=== PATIENT | female | born 1930 | race Caucasian/White ===

== ENCOUNTER 2017-09-20 18:37 | Inpatient (IN) | payer MEDICARE, OTHER ==
[~2017-09-20] VITALS: Ht 160 cm; Wt 65.0 kg
[2017-09-20] VITALS (11 sets, daily range): BP systolic 144–178; BP diastolic 63–84; PULSE 65–83; RESP 14–20; TEMP 97.5; O2SAT 92–100
[~2017-09-20 18:37] MED LIST: LORTA5 PO; [UNRECOGNIZED DRUG - REMARK] PO
[2017-09-20] MEDS ORDERED: ONDANSETRON HCL 4 MG/2 ML VIAL IVP ONE (19:00)
[2017-09-20] MEDS ORDERED: AMLO2.5T PO (19:00)
[2017-09-20] MEDS ORDERED: ASPI81CH CHEW (19:00)
[2017-09-20] MEDS ORDERED: MORPHINE SULFATE 4 MG/ML INJ IV PUSH ONE (19:00)
[2017-09-20] MEDS ORDERED: ceFAZolin 2 GM PREMIX 50 ML IV ONE (19:00)
[2017-09-20] MEDS ORDERED: TETANUS/DIPHTHERIA TOXOID ADULT 0.5 ML VIAL IM ONE (19:00)
[2017-09-20] MEDS ORDERED: SODIUM CHLORIDE 0.9% FLUSH 10 ML FLUSH IV FLUSH PRN ×3 (19:00→23:30)
--- NOTE | 2017-09-20 19:06 | PD ---
HPI Chief Complaint: Fall Time Seen by Provider: 18:48 Travel History International Travel<30 days: No Contact w/Intl Traveler<30days: No Traveled to known affect area: No History of Present Illness HPI 87-year-old female here with her daughter for evaluation of right wrist pain after a trip and fall that occurred about an hour prior to arrival. The patient reports tripping and falling forward onto an outstretched right arm. She has significant pain in her right wrist and there apparently was bleeding from the wrist as well. She denies any other injuries. No head injury or LOC. No head neck or back pain. No pain in any other joint or extremity. Right wrist pain is moderate to severe, constant, worse with movements and palpation. No paresthesias. She is right-handed. PFSH Past Medical History Cardiovascular Problems: Yes (HTN ) Cerebrovascular Accident: Yes Diminished Hearing: Yes ([place]) Hypertension: Yes Past Surgical History Gynecologic Surgery: Yes (L LUMPECTOMY, HYSTERECTOMY ) Hysterectomy: Yes Other Surgery: Yes (BIOPSY LEFT BREAST) Social History Alcohol Use: Yes (OCC) Tobacco Use: No Substance Use: No Allergies-Medications (Allergen,Severity, Reaction): Coded Allergies: No Known Allergies (Unverified , 05/06/16) Reported Meds & Prescriptions Reported Meds & Active Scripts Active Reported Amlodipine (Amlodipine Besylate) 2.5 Mg Tab 2.5 Mg PO DAILY Aspirin 81 Mg Chew 81 Mg CHEW DAILY Review of Systems Except as stated in HPI: all other systems reviewed are Neg Physical Exam Narrative GENERAL: Pleasant, well-developed, well-nourished, awake, alert, no apparent distress. SKIN: Right medial/distal wrist with a approximately 1.5 cm laceration with moderate amount of venous oozing with small fat cells noted. HEAD: Atraumatic. Normocephalic. EYES: Pupils equal and round. No scleral icterus. No injection or drainage. ENT: Mucous membranes pink and moist. NECK: Trachea midline. No JVD. No midline cervical spine step-off or tenderness. CARDIOVASCULAR: Regular rate and rhythm. Bilateral distal radial pulses are brisk and equal. Normal capillary refill in right hand. RESPIRATORY: No accessory muscle use. Clear to auscultation. Breath sounds equal bilaterally. GASTROINTESTINAL: Abdomen soft, non-tender, nondistended. MUSCULOSKELETAL: Obvious deformity to right wrist with skin exam as above with limited range of motion in the wrist. The rest of the patient's joints and extremities are without deformity, without tenderness, with normal range of motion. NEUROLOGICAL: Awake and alert. No obvious cranial nerve deficits. Motor grossly within normal limits. Normal speech. Normal sensation in the right hand. PSYCHIATRIC: Appropriate mood and affect; insight and judgment normal. Data Data Last Documented VS Vital Signs Date Time Temp Pulse Resp B/P (MAP) Pulse Ox O2 Delivery O2 Flow Rate FiO2 09/20/17 20:38 82 17 154/69 (97) 97 Nasal Cannula 2.00 09/20/17 18:56 97.5 Orders Orders Wrist, Complete ([id number]) (09/20/17 ) Basic Metabolic Panel (Bmp) (09/20/17 18:59) Complete Blood Count With Diff (09/20/17 18:59) Prothrombin Time / Inr (Pt) (09/20/17 18:59) Act Partial Throm Time (Ptt) (09/20/17 18:59) Iv Access Insert/Monitor (09/20/17 18:59) Ecg Monitoring (09/20/17 18:59) Oximetry (09/20/17 18:59) Morphine Inj (Morphine Inj) (09/20/17 19:00) Ondansetron Inj (Zofran Inj) (09/20/17 19:00) Sodium Chloride 0.9% Flush (Ns Flush) (09/20/17 19:00) Type And Screen (09/20/17 18:59) Tetanus/Diphtheria Tox Adult (Tetanus/Di (09/20/17 19:00) Cefazolin 2 Gm Premix (Ancef 2 Gm Premix (09/20/17 19:00) Chest, Single Ap (09/20/17 ) Propofol 200 Mg/20 Ml Inj (Diprivan 200 (09/20/17 19:45) Wrist, Complete ([id number]) (09/20/17 ) NPO (09/20/17 20:09) Consult Orthopedic (09/20/17 ) Labs Laboratory Tests Test 09/20/17 19:15 White Blood Count 9.1 TH/MM3 Red Blood Count 4.20 MIL/MM3 Hemoglobin 13.2 GM/DL Hematocrit 39.2 % Mean Corpuscular Volume 93.5 FL Mean Corpuscular Hemoglobin 31.5 PG Mean Corpuscular Hemoglobin Concent 33.7 % Red Cell Distribution Width 13.3 % Platelet Count 221 TH/MM3 Mean Platelet Volume 9.0 FL Neutrophils (%) (Auto) 45.5 % Lymphocytes (%) (Auto) 43.4 % Monocytes (%) (Auto) 8.0 % Eosinophils (%) (Auto) 2.2 % Basophils (%) (Auto) 0.9 % Neutrophils # (Auto) 4.2 TH/MM3 Lymphocytes # (Auto) 4.0 TH/MM3 Monocytes # (Auto) 0.7 TH/MM3 Eosinophils # (Auto) 0.2 TH/MM3 Basophils # (Auto) 0.1 TH/MM3 CBC Comment DIFF FINAL Differential Comment Prothrombin Time 11.5 SEC Prothromb Time International Ratio 1.0 RATIO Activated Partial Thromboplast Time 24.0 SEC Blood Urea Nitrogen 21 MG/DL Creatinine 0.81 MG/DL Random Glucose 116 MG/DL Calcium Level 9.1 MG/DL Sodium Level 137 MEQ/L Potassium Level 3.7 MEQ/L Chloride Level 104 MEQ/L Carbon Dioxide Level 25.1 MEQ/L Anion Gap 8 MEQ/L Estimat Glomerular Filtration Rate 67 ML/MIN MDM Medical Decision Making Medical Screen Exam Complete: Yes Emergency Medical Condition: Yes Differential Diagnosis Open wrist fracture, fracture dislocation Narrative Course The patient has an obvious deformity to her right wrist with a 1.5 cm laceration to the distal wrist over the distal ulna with a moderate amount of venous oozing with fat cells noted. This is likely an open fracture. Wound was irrigated with copious amounts of normal saline and a sterile/nonadherent dressing was applied. The right hand is neurovascularly intact. The patient was provided tetanus and Ancef as well as pain medication. X-rays ordered. Right wrist x-ray shows a comminuted/dorsally/radially displaced distal radius fracture as well as ulnar styloid process fracture. Case discussed with operating room nurse who relayed the message to on-call orthopedic surgeon Dr. Lantigua who is currently in surgery. He recommends that I try to reduce the fracture and place the patient's wrist in a splint. He would like the patient to be admitted medically with a routine orthopedic consults. Plans for ORIF either later tonight or tomorrow morning. Procedural sedation performed by Dr. Greene. See her note. Close reduction performed by me. See procedure note. Case discussed with Dr Ferguson who will admit the patient to her service. Procedures Procedure Narrative Close reduction of right wrist fracture: Informed consent obtained. Procedural sedation performed by Dr. Greene. Once adequate sedation was achieved, reduction was performed by pulling traction on the patient's thumb index and middle finger. Nonadherent dressing applied to laceration on the distal/medial wrist prior to splint application. Tolerated well. No complications. Postreduction x-rays ordered. Right hand neurovascularly intact after procedure. She was complaining of some tingling in her right pinky finger prior to and after the procedure, however sensation remains intact. Diagnosis Primary Impression: Open fracture of right wrist Qualified Codes: S62.101B - Fracture of unspecified carpal bone, right wrist, initial encounter for open fracture Additional Impression: Fall Qualified Codes: W19.XXXA - Unspecified fall, initial encounter Admitting Information Admitting Physician Requests: it Jace Pascual MD Sep 20, 2017 19:05
--- NOTE | 2017-09-20 19:35 | RADRPT ---
EXAM DATE/TIME: 09/20/2017 20:00 [facility] COMPARISON: No previous studies available for comparison. INDICATIONS : Evaluate for pneumothorax, pneumonia, or communicable diseases. MEDICAL HISTORY : None. SURGICAL HISTORY : None. ENCOUNTER: Initial ACUITY: 1 day PAIN SCORE: 0/10 LOCATION: chest FINDINGS: Bony structures appear osteopenic provide H. and intact with normal size heart and atherosclerotic ch anges in the aorta. There are remote healed right rib fractures. Vascularity is normal. No consolidat rebecca infiltrates are appreciated. CONCLUSION: No acute disease. Naresh Mendez MD on September 20, 2017 at 19:33 Board Certified Radiologist. This report was verified electronically.
[2017-09-20 19:36] LABS: AUTOMATED NEUTROPHIL # 4.2 TH/MM3 (1.8-7.7); BASOPHIL # 0.1 TH/MM3 (0-0.2); BASOPHIL % 0.9 % (0.0-2.0); EOSINOPHIL # 0.2 TH/MM3 (0-0.4); EOSINOPHIL % 2.2 % (0.0-4.0); HEMATOCRIT 39.2 % (35.0-46.0); HEMO FLAGS DIFF FINAL; LYMPH % 43.4 % (9.0-44.0); MEAN CELL VOLUME 93.5 FL (80.0-100.0); MEAN CORPUSCULAR HEMOGLOBIN 31.5 PG (27.0-34.0); MEAN CORPUSCULAR HGB CONC 33.7 % (32.0-36.0); NEUT % 45.5 % (16.0-70.0); PLATELET COUNT 221 TH/MM3 (150-450); RED CELL DISTRIBUTION WIDTH 13.3 % (11.6-17.2); WHITE BLOOD COUNT 9.1 TH/MM3 (4.0-11.0)
--- NOTE | 2017-09-20 19:36 | RADRPT ---
EXAM DATE/TIME: 09/20/2017 19:56 [facility] COMPARISON: No previous studies available for comparison. INDICATIONS : Patient complains of right wrist pain after falling today. MEDICAL HISTORY : None. SURGICAL HISTORY : None. ENCOUNTER: Initial ACUITY: 1 day PAIN SCORE: 10/10 LOCATION: Right Wrist FINDINGS: There is a comminuted distal radial fracture with the major distal fragments exter gali displaced upon the major proximal fragment and overriding. Carpal bones move with the distal fr agments. There is additionally a fracture of the ulnar styloid and this may be open and extending tow [place] the skin. CONCLUSION: Comminuted fracture distal radius major distal fragments are slowly and medially exte rnally displaced upon the proximal fragment and overriding by probably 2 cm. Fracture is probably ope n with a small area of bone absent from the ulnar styloid Naresh Mendez MD on September 20, 2017 at 19:34 Board Certified Radiologist. This report was verified electronically.
[2017-09-20] MEDS ORDERED: PROPOFOL 200 MG/20 ML AMP IV ONE (19:45)
[2017-09-20 19:49] LABS: PROTHROMBIN TIME - PATIENT 11.5 SEC (9.8-11.6)
[2017-09-20 20:04] LABS: BICARBONATE 25.1 MEQ/L (21.0-32.0); POTASSIUM 3.7 MEQ/L (3.5-5.1)
--- NOTE | 2017-09-20 20:12 | PD ---
Physical Exam Narrative I was asked by Dr. Pascual to perform conscious sedation for fracture reduction. Patient tripped and fell, injuring her wrist. She is awake and alert, airway is patent. Data Data Last Documented VS Vital Signs Date Time Temp Pulse Resp B/P (MAP) Pulse Ox O2 Delivery O2 Flow Rate FiO2 09/20/17 19:32 92 Nasal Cannula 2.00 09/20/17 18:56 68 09/20/17 18:56 97.5 18 Orders Orders Wrist, Complete ([id number]) (09/20/17 ) Basic Metabolic Panel (Bmp) (09/20/17 18:59) Complete Blood Count With Diff (09/20/17 18:59) Prothrombin Time / Inr (Pt) (09/20/17 18:59) Act Partial Throm Time (Ptt) (09/20/17 18:59) Iv Access Insert/Monitor (09/20/17 18:59) Ecg Monitoring (09/20/17 18:59) Oximetry (09/20/17 18:59) Morphine Inj (Morphine Inj) (09/20/17 19:00) Ondansetron Inj (Zofran Inj) (09/20/17 19:00) Sodium Chloride 0.9% Flush (Ns Flush) (09/20/17 19:00) Type And Screen (09/20/17 18:59) Tetanus/Diphtheria Tox Adult (Tetanus/Di (09/20/17 19:00) Cefazolin 2 Gm Premix (Ancef 2 Gm Premix (09/20/17 19:00) Chest, Single Ap (09/20/17 ) Propofol 200 Mg/20 Ml Inj (Diprivan 200 (09/20/17 19:45) Wrist, Complete ([id number]) (09/20/17 ) NPO (09/20/17 20:09) Labs Laboratory Tests Test 09/20/17 19:15 White Blood Count 9.1 TH/MM3 Red Blood Count 4.20 MIL/MM3 Hemoglobin 13.2 GM/DL Hematocrit 39.2 % Mean Corpuscular Volume 93.5 FL Mean Corpuscular Hemoglobin 31.5 PG Mean Corpuscular Hemoglobin Concent 33.7 % Red Cell Distribution Width 13.3 % Platelet Count 221 TH/MM3 Mean Platelet Volume 9.0 FL Neutrophils (%) (Auto) 45.5 % Lymphocytes (%) (Auto) 43.4 % Monocytes (%) (Auto) 8.0 % Eosinophils (%) (Auto) 2.2 % Basophils (%) (Auto) 0.9 % Neutrophils # (Auto) 4.2 TH/MM3 Lymphocytes # (Auto) 4.0 TH/MM3 Monocytes # (Auto) 0.7 TH/MM3 Eosinophils # (Auto) 0.2 TH/MM3 Basophils # (Auto) 0.1 TH/MM3 CBC Comment DIFF FINAL Differential Comment Prothrombin Time 11.5 SEC Prothromb Time International Ratio 1.0 RATIO Activated Partial Thromboplast Time 24.0 SEC Blood Urea Nitrogen 21 MG/DL Creatinine 0.81 MG/DL Random Glucose 116 MG/DL Calcium Level 9.1 MG/DL Sodium Level 137 MEQ/L Potassium Level 3.7 MEQ/L Chloride Level 104 MEQ/L Carbon Dioxide Level 25.1 MEQ/L Anion Gap 8 MEQ/L Estimat Glomerular Filtration Rate 67 ML/MIN MDM Supervised Visit with DUC: No Narrative Course Procedural sedation performed using Propofol after consent obtained. Sedation occurred without incident. Patient awoke from sedation, breathing normally, resting comfortably. Procedures Procedure Narrative After the risks and benefits were discussed the following procedure was performed: MODERATE SEDATION: The patient was placed on a detective sergeant and pulse oximetry. An ambu bag and suction was immediately available at bedside. The patient was monitored by the nurse. Oxygen saturation , heart rate and blood pressure were monitored. Procedural sedation was acheived using propofol. The patient was observed until awake and alert. Procedural Sedation time in attendance was 15 minutes. Diagnosis Primary Impression: Open fracture of right wrist Qualified Codes: S62.101B - Fracture of unspecified carpal bone, right wrist, initial encounter for open fracture Additional Impression: Fall Qualified Codes: W19.XXXA - Unspecified fall, initial encounter Shraddha Greene MD Sep 20, 2017 20:12
--- NOTE | 2017-09-20 20:29 | RADRPT ---
EXAM DATE/TIME: 09/20/2017 21:04 [facility] COMPARISON: WRIST RIGHT COMPLETE ([id number]), September 20, 2017, 19:56. INDICATIONS : Post reduction. MEDICAL HISTORY : None. SURGICAL HISTORY : None. ENCOUNTER: Initial ACUITY: 1 day PAIN SCORE: 3/10 LOCATION: Right wrist FINDINGS: D. dislocation of the distal radial fracture fragments is reduced in improved alignment distal fragme nt still 1 cm externally displaced on the major proximal fragment with the overriding component dimin ished. There is an external cast in place CONCLUSION: Reduction distal radial fracture into improved alignment and approximation of fragments with diminish ed overriding and displacement Naresh Mendez MD on September 20, 2017 at 20:26 Board Certified Radiologist. This report was verified electronically.
--- NOTE | 2017-09-20 20:56 | HHI.HP ---
[facility] Service [facility] Primary Care Physician No Primary Care Physician Admission Diagnosis Open right wrist fracture, trip and fall Diagnoses: Travel History International Travel<30 Days: No Contact w/Intl Traveler <30 Da: No Traveled to Known Affected Are: No Past Family Social History Allergies: Coded Allergies: No Known Allergies (Unverified , 05/06/16) Physical Exam Vital Signs Vital Signs Date Time Temp Pulse Resp B/P (MAP) Pulse Ox O2 Delivery O2 Flow Rate FiO2 09/20/17 20:41 74 16 154/69 (97) 95 Nasal Cannula 2.00 09/20/17 20:38 82 17 154/69 (97) 97 Nasal Cannula 2.00 09/20/17 20:24 77 14 146/63 (90) 92 Nasal Cannula 2.00 09/20/17 20:08 77 16 169/74 (105) 92 Nasal Cannula 09/20/17 20:03 74 16 144/73 (96) 92 Nasal Cannula 2.00 09/20/17 19:58 81 18 157/71 (99) 100 Nasal Cannula 2.00 09/20/17 19:54 80 18 149/72 (97) 99 Nasal Cannula 2.00 09/20/17 19:32 92 Nasal Cannula 2.00 09/20/17 18:56 68 09/20/17 18:56 97.5 65 18 149/79 (102) 96 Room Air 09/20/17 18:45 78 18 149/79 (102) 97 Physical Exam GENERAL: This is a well-nourished, well-developed patient, in no apparent distress. SKIN: No rashes, ecchymoses or lesions. Cool and dry. HEAD: Atraumatic. Normocephalic. No temporal or scalp tenderness. EYES: Pupils equal round and reactive. Extraocular motions intact. No scleral icterus. No injection or drainage. ENT: Nose without bleeding, purulent drainage or septal hematoma. Throat without erythema, tonsillar hypertrophy or exudate. Uvula midline. Airway patent. NECK: Trachea midline. No JVD or lymphadenopathy. Supple, nontender, no meningeal signs. CARDIOVASCULAR: Regular rate and rhythm without murmurs, gallops, or rubs. RESPIRATORY: Clear to auscultation. Breath sounds equal bilaterally. No wheezes , rales, or rhonchi. GASTROINTESTINAL: Abdomen soft, non-tender, nondistended. No hepato-splenomegaly , or palpable masses. No guarding. MUSCULOSKELETAL: Extremities without clubbing, cyanosis, or edema. No joint tenderness, effusion, or edema noted. No calf tenderness. Negative Homans sign bilaterally. NEUROLOGICAL: Awake and alert. Cranial nerves II through XII intact. Motor and sensory grossly within normal limits. Five out of 5 muscle strength in all muscle groups. Normal speech. Laboratory Laboratory Tests Test 09/20/17 19:15 White Blood Count 9.1 Red Blood Count 4.20 Hemoglobin 13.2 Hematocrit 39.2 Mean Corpuscular Volume 93.5 Mean Corpuscular Hemoglobin 31.5 Mean Corpuscular Hemoglobin Concent 33.7 Red Cell Distribution Width 13.3 Platelet Count 221 Mean Platelet Volume 9.0 Neutrophils (%) (Auto) 45.5 Lymphocytes (%) (Auto) 43.4 Monocytes (%) (Auto) 8.0 Eosinophils (%) (Auto) 2.2 Basophils (%) (Auto) 0.9 Neutrophils # (Auto) 4.2 Lymphocytes # (Auto) 4.0 Monocytes # (Auto) 0.7 Eosinophils # (Auto) 0.2 Basophils # (Auto) 0.1 CBC Comment DIFF FINAL Differential Comment Prothrombin Time 11.5 Prothromb Time International Ratio 1.0 Activated Partial Thromboplast Time 24.0 Blood Urea Nitrogen 21 Creatinine 0.81 Random Glucose 116 Calcium Level 9.1 Sodium Level 137 Potassium Level 3.7 Chloride Level 104 Carbon Dioxide Level 25.1 Anion Gap 8 Estimat Glomerular Filtration Rate 67 Result Diagram: 09/20/17191409/20/171914 Caprini VTE Risk Assessment Caprini VTE Risk Assessment: Mod/High Risk (score >= 2) Caprini Risk Assessment Model Point Value = 1 Point Value = 2 Point Value = 3 Point Value = 5 Age 41-60 Minor surgery BMI > 25 kg/m2 Swollen legs Varicose veins or History of unexplained or recurrent spontaneous Oral contraceptives or hormone replacement Sepsis (< 1 month) Serious lung disease, including pneumonia (< 1 month) Abnormal pulmonary function Acute myocardial infarction Congestive heart failure (< 1 month) History of inflammatory bowel disease Medical patient at bed rest Age 61-74 Arthroscopic surgery Major open surgery (> 45 min) Laparoscopic surgery (> 45 min) Malignancy Confined to bed (> 72 hours) Immobilizing plaster cast Central venous access Age >= 75 History of VTE Family history of VTE Factor V Leiden Prothrombin [id number] Lupus anticoagulant Anticardiolipin antibodies Elevated serum homocysteine Heparin-induced thrombocytopenia Other congenital or acquired thrombophilia Stroke (< 1 month) Elective arthroplasty Hip, pelvis, or leg fracture Acute spinal cord injury (< 1 month) Prophylaxis Regimen Total Risk Factor Score Risk Level Prophylaxis Regimen 0-1 Low Early ambulation 2 Moderate Order ONE of the following: *Sequential Compression Device (SCD) *Heparin 5000 units SQ BID 3-4 Higher Order ONE of the following medications: *Heparin 5000 units SQ TID *Enoxaparin/Lovenox 40 mg SQ daily (WT < 150 kg, CrCl > 30 mL/min) *Enoxaparin/Lovenox 30 mg SQ daily (WT < 150 kg, CrCl > 10-29 mL/min) *Enoxaparin/Lovenox 30 mg SQ BID (WT < 150 kg, CrCl > 30 mL/min) AND/OR *Sequential Compression Device (SCD) 5 or more Highest Order ONE of the following medications: *Heparin 5000 units SQ TID (Preferred with Epidurals) *Enoxaparin/Lovenox 40 mg SQ daily (WT < 150 kg, CrCl > 30 mL/min) *Enoxaparin/Lovenox 30 mg SQ daily (WT < 150 kg, CrCl > 10-29 mL/min) *Enoxaparin/Lovenox 30 mg SQ BID (WT < 150 kg, CrCl > 30 mL/min) AND *Sequential Compression Device (SCD) Physician Certification Order for Inpatient Services The services are ordered in accordance with Medicare regulations or non- Medicare payer requirements, as applicable. In the case of services not specified as inpatient-only, they are appropriately provided as inpatient services in accordance with the 2-midnight benchmark. days is the estimated time the patient will need to remain in the hospital, assuming treatment plan goals are met and no additional complications. Coleen Ferguson MD Sep 20, 2017 20:56
[2017-09-20] MEDS ORDERED: ACETAMINOPHEN 325 MG TAB PO PRN ×2 (21:00→23:30)
[2017-09-20] MEDS ORDERED: MAGNESIUM HYDROXIDE SUSP 30 ML CUP PO PRN (21:00)
[2017-09-20] MEDS ORDERED: MORPHINE SULFATE 4 MG/ML INJ IV PUSH PRN (21:00)
[2017-09-20] MEDS ORDERED: ACETAMINOPHEN/HYDROcodone 325 MG/5 MG TAB PO PRN ×2 (21:00→23:30)
[2017-09-20] MEDS ORDERED: SODIUM CHLOR 0.9% 1000 ML INJ 1,000 ML IV SCH (21:00)
[2017-09-20] MEDS ORDERED: BISACODYL 10 MG SUPP RECTAL PRN (21:00)
[2017-09-20] MEDS ORDERED: LACTULOSE SYRUP 20 GM/30 ML CUP PO PRN (21:00)
[2017-09-20] MEDS ORDERED: SODIUM CHLORIDE 0.9% FLUSH 10 ML FLUSH IV FLUSH SCH (21:00)
[2017-09-20] MEDS ORDERED: SENNOSIDES 8.6 MG TAB PO PRN (21:00)
[2017-09-20] MEDS ORDERED: ONDANSETRON HCL 4 MG/2 ML VIAL IVP PRN (21:00)
[2017-09-20] MEDS ORDERED: PILL SPLITTER OTHER PRN (21:15)
[2017-09-20] MEDS: DOCUSATE SODIUM 50 MG/SENNA 8.6 MG TAB PO SCH (21:23)
--- NOTE | 2017-09-20 21:29 | PD.CONS ---
cc: Hong Lantigua MD [facility] Service Orthopedic Surgeons Consult Requested By Dr. Pascual Reason for Consult Evaluation of open wrist fracture right upper extremity Primary Care Physician No Primary Care Physician Admission Diagnosis Open right wrist fracture, trip and fall Diagnoses: (1) Fracture, Colles, right, open Chief Complaint: Right wrist pain History of Present Illness This 87-year-old female fell earlier today onto an outstretched right upper extremity. She had immediate pain and obvious deformity of the wrist. She presented to [facility]. X-rays revealed a significantly displaced distal radius fracture. There was an laceration over the ulnar aspect with slight venous bleeding and communication with the fracture site. She did undergo a close reduction by the emergency room staff with splinting. This did improve the overall alignment however because of the residual displacement and the open nature of the injury and orthopedic consultation is requested. The patient resides with her daughter. She is hard of hearing and the history is primarily obtained from the daughter. She denies other extremity injury at the time of her fall. Review of Systems Reviewed and well outlined in the medical record Past Family Social History Past Medical History Hypertension Past Surgical History Breast lumpectomy, hysterectomy, left wrist surgery Reported Medications Well outlined in medical record Allergies: Coded Allergies: No Known Allergies (Unverified , 05/06/16) Active Ordered Medications Current Medications Medications (Trade) Dose Ordered Sig/Thad Route Start Time Stop Time Status Last Admin Sodium Chloride 1,000 ml @ 100 mls/hr Q10H IV 09/20/17 21:00 (NS Flush) 2 ml UNSCH PRN IV FLUSH 09/20/17 21:00 (NS Flush) 2 ml BID IV FLUSH 09/20/17 21:00 (Zofran Inj) 4 mg Q6H PRN IVP 09/20/17 21:00 (Tylenol) 650 mg Q6H PRN PO 09/20/17 21:00 ([place] 5-325 Mg) 1 tab Q4H PRN PO 09/20/17 21:00 (Morphine Inj) 2 mg Q3H PRN IV PUSH 09/20/17 21:00 (Rolanda-Colace) 1 tab BID PO 09/20/17 21:00 (Milk Of Magnesia Liq) 30 ml Q12H PRN PO 09/20/17 21:00 (Senokot) 17.2 mg Q12H PRN PO 09/20/17 21:00 (Dulcolax Supp) 10 mg DAILY PRN RECTAL 09/20/17 21:00 (Lactulose Liq) 30 ml DAILY PRN PO 09/20/17 21:00 (Norvasc) 2.5 mg DAILY PO 09/21/17 09:00 (Pill Splitter) 1 ea UNSCH PRN OTHER 09/20/17 21:15 Reported Meds & Active Scripts Active Reported Amlodipine (Amlodipine Besylate) 2.5 Mg Tab 2.5 Mg PO DAILY Aspirin 81 Mg Chew 81 Mg CHEW DAILY Family History Noncontributory Social History Alcohol Use: Yes (OCC) Tobacco Use: No Substance Use: No Physical Exam Vital Signs Vital Signs Date Time Temp Pulse Resp B/P (MAP) Pulse Ox O2 Delivery O2 Flow Rate FiO2 09/20/17 21:03 83 20 178/84 (115) 94 Nasal Cannula 2.00 09/20/17 20:41 74 16 154/69 (97) 95 Nasal Cannula 2.00 09/20/17 20:38 82 17 154/69 (97) 97 Nasal Cannula 2.00 09/20/17 20:24 77 14 146/63 (90) 92 Nasal Cannula 2.00 09/20/17 20:08 77 16 169/74 (105) 92 Nasal Cannula 09/20/17 20:03 74 16 144/73 (96) 92 Nasal Cannula 2.00 09/20/17 19:58 81 18 157/71 (99) 100 Nasal Cannula 2.00 09/20/17 19:54 80 18 149/72 (97) 99 Nasal Cannula 2.00 09/20/17 19:32 92 Nasal Cannula 2.00 09/20/17 18:56 68 09/20/17 18:56 97.5 65 18 149/79 (102) 96 Room Air 09/20/17 18:45 78 18 149/79 (102) 97 Physical Exam The right upper extremity is in a long-arm splint. This was left in place. She has good capillary refill and sensation involving the fingers. The splint does impede finger mobility. There are no other localizing signs of extremity injury. Laboratory Laboratory Tests Test 09/20/17 19:15 White Blood Count 9.1 Red Blood Count 4.20 Hemoglobin 13.2 Hematocrit 39.2 Mean Corpuscular Volume 93.5 Mean Corpuscular Hemoglobin 31.5 Mean Corpuscular Hemoglobin Concent 33.7 Red Cell Distribution Width 13.3 Platelet Count 221 Mean Platelet Volume 9.0 Neutrophils (%) (Auto) 45.5 Lymphocytes (%) (Auto) 43.4 Monocytes (%) (Auto) 8.0 Eosinophils (%) (Auto) 2.2 Basophils (%) (Auto) 0.9 Neutrophils # (Auto) 4.2 Lymphocytes # (Auto) 4.0 Monocytes # (Auto) 0.7 Eosinophils # (Auto) 0.2 Basophils # (Auto) 0.1 CBC Comment DIFF FINAL Differential Comment Prothrombin Time 11.5 Prothromb Time International Ratio 1.0 Activated Partial Thromboplast Time 24.0 Blood Urea Nitrogen 21 Creatinine 0.81 Random Glucose 116 Calcium Level 9.1 Sodium Level 137 Potassium Level 3.7 Chloride Level 104 Carbon Dioxide Level 25.1 Anion Gap 8 Estimat Glomerular Filtration Rate 67 Result Diagram: 09/20/17191409/20/171914 Imaging Last 24 hours Impressions Wrist X-Ray 09/20/17 0000 Signed Impressions: Service Date/Time: Wednesday, September 20, 2017 21:04 - CONCLUSION: Reduction distal radial fracture into improved alignment and approximation of fragments with diminished overriding and displacement Naresh Mendez MD Wrist X-Ray 09/20/17 0000 Signed Impressions: Service Date/Time: Wednesday, September 20, 2017 19:56 - CONCLUSION: Comminuted fracture distal radius major distal fragments are slowly and medially externally displaced upon the proximal fragment and overriding by probably 2 cm. Fracture is probably open with a small area of bone absent from the ulnar styloid Naresh Mendez MD Chest X-Ray 09/20/17 0000 Signed Impressions: Service Date/Time: Wednesday, September 20, 2017 20:00 - CONCLUSION: No acute disease. Naresh Mendez MD Assessment & Plan Problem List: (1) Fracture, Colles, right, open ICD Codes: S52.531B - Colles' fracture of right radius, initial encounter for open fracture type I or II Status: Acute Qualifiers: Plan: The findings were discussed with the patient and her daughter. Given the open nature of her injury recommendations are for operative management. This would include open reduction with possible internal versus external fixation. Given the bone quality and the proximity to the joint the most likely approach will be with external fixation. The nature of the procedure, the risks, the expected benefits, as well as the postoperative expectations have been discussed with them in detail. In addition, the alternatives to treatment and risks of same were discussed. They acknowledged full understanding and consent to it. (2) Hypertension ICD Codes: I10 - Essential (primary) hypertension Status: Chronic (3) Hypothyroidism ICD Codes: E03.9 - Hypothyroidism, unspecified Status: Chronic (4) Hyperlipidemia ICD Codes: E78.5 - Hyperlipidemia, unspecified Status: Chronic Hong Lantigua MD Sep 20, 2017 21:29
[2017-09-20] MEDS ORDERED: GENTAMICIN SULFATE 80 MG/2 ML VIAL ONE (21:37)
--- NOTE | 2017-09-20 21:45 | HHI.HP ---
HPI Service [facility] Hospitalists Primary Care Physician No Primary Care Physician Admission Diagnosis Open right wrist fracture, trip and fall Diagnoses: (1) Fall Diagnosis: Principal (2) Open fracture of right wrist Diagnosis: Principal (3) Dehydration Diagnosis: Principal (4) HTN (hypertension) Diagnosis: Principal Travel History International Travel<30 Days: No Contact w/Intl Traveler <30 Da: No Traveled to Known Affected Are: No History of Present Illness This is an 87-year-old female with a PMH of HTN, Hyperlipidemia, SELDOVIA and h/o CVA who was brought to the ER by EMS after fall w/ right wrist pain. Pt had mechanical trip and fall onto outstretched arm, felt immediate pain. No LOC or head trauma. On arrival, BP 149/79, HR 68, O2 sat 96% on RA, Afebrile. CBC unremarkable. Chemistry unremarkable except for GFR 67. BUN 21. INR 1.0. Wrist X-ray with comminuted fracture distal radius major distal fragment slowly and medially externally displaced, fracture probably open. S/p reduction in ER. Dr. Lantigua consulted by ER physician, plan is for surgical intervention. Review of Systems Except as stated in HPI: all other systems reviewed are Neg ROS: 14 point review of systems otherwise negative. Past Family Social History Past Medical History PMH: HTN, Hyperlipidemia, SELDOVIA and h/o CVA Past Surgical History PAST SURGICAL HISTORY: Left Lumpectomy, Hysterectomy Allergies: Coded Allergies: No Known Allergies (Unverified , 05/06/16) Family History PAST FAMILY HISTORY: Reviewed. No h/o DM or CAD Social History PAST SOCIAL HISTORY: Occasional alcohol. Negative for tobacco or drugs. Physical Exam Vital Signs Vital Signs Date Time Temp Pulse Resp B/P (MAP) Pulse Ox O2 Delivery O2 Flow Rate FiO2 09/20/17 21:03 83 20 178/84 (115) 94 Nasal Cannula 2.00 09/20/17 20:41 74 16 154/69 (97) 95 Nasal Cannula 2.00 09/20/17 20:38 82 17 154/69 (97) 97 Nasal Cannula 2.00 09/20/17 20:24 77 14 146/63 (90) 92 Nasal Cannula 2.00 09/20/17 20:08 77 16 169/74 (105) 92 Nasal Cannula 09/20/17 20:03 74 16 144/73 (96) 92 Nasal Cannula 2.00 09/20/17 19:58 81 18 157/71 (99) 100 Nasal Cannula 2.00 09/20/17 19:54 80 18 149/72 (97) 99 Nasal Cannula 2.00 09/20/17 19:32 92 Nasal Cannula 2.00 09/20/17 18:56 68 09/20/17 18:56 97.5 65 18 149/79 (102) 96 Room Air 09/20/17 18:45 78 18 149/79 (102) 97 Physical Exam PE: GENERAL: Pleasant elderly white female in no acute distress. SELDOVIA. Daughter at bedside. HEENT: PERRLA, EOMI. No scleral icterus or conjunctival pallor. No lid lag or facial droop. CARDIOVASCULAR: Regular rate and rhythm. No obvious murmurs to auscultation. No chest tenderness to palpation. RESPIRATORY: No obvious rhonchi or wheezing. Clear to auscultation. Breath sounds equal bilaterally. GASTROINTESTINAL: Abdomen soft, non-tender, nondistended. BS normal. MUSCULOSKELETAL: Extremities without clubbing, cyanosis, or edema. No obvious deformities. RUE in splint. NEUROLOGICAL: Awake, alert and oriented x4. No focal neurologic deficits. Moving both upper and lower extremities spontaneously. Laboratory Laboratory Tests Test 09/20/17 19:15 White Blood Count 9.1 Red Blood Count 4.20 Hemoglobin 13.2 Hematocrit 39.2 Mean Corpuscular Volume 93.5 Mean Corpuscular Hemoglobin 31.5 Mean Corpuscular Hemoglobin Concent 33.7 Red Cell Distribution Width 13.3 Platelet Count 221 Mean Platelet Volume 9.0 Neutrophils (%) (Auto) 45.5 Lymphocytes (%) (Auto) 43.4 Monocytes (%) (Auto) 8.0 Eosinophils (%) (Auto) 2.2 Basophils (%) (Auto) 0.9 Neutrophils # (Auto) 4.2 Lymphocytes # (Auto) 4.0 Monocytes # (Auto) 0.7 Eosinophils # (Auto) 0.2 Basophils # (Auto) 0.1 CBC Comment DIFF FINAL Differential Comment Prothrombin Time 11.5 Prothromb Time International Ratio 1.0 Activated Partial Thromboplast Time 24.0 Blood Urea Nitrogen 21 Creatinine 0.81 Random Glucose 116 Calcium Level 9.1 Sodium Level 137 Potassium Level 3.7 Chloride Level 104 Carbon Dioxide Level 25.1 Anion Gap 8 Estimat Glomerular Filtration Rate 67 Result Diagram: 09/20/17191409/20/171914 Caprini VTE Risk Assessment Caprini VTE Risk Assessment: Mod/High Risk (score >= 2) Caprini Risk Assessment Model Point Value = 1 Point Value = 2 Point Value = 3 Point Value = 5 Age 41-60 Minor surgery BMI > 25 kg/m2 Swollen legs Varicose veins or History of unexplained or recurrent spontaneous Oral contraceptives or hormone replacement Sepsis (< 1 month) Serious lung disease, including pneumonia (< 1 month) Abnormal pulmonary function Acute myocardial infarction Congestive heart failure (< 1 month) History of inflammatory bowel disease Medical patient at bed rest Age 61-74 Arthroscopic surgery Major open surgery (> 45 min) Laparoscopic surgery (> 45 min) Malignancy Confined to bed (> 72 hours) Immobilizing plaster cast Central venous access Age >= 75 History of VTE Family history of VTE Factor V Leiden Prothrombin [id number] Lupus anticoagulant Anticardiolipin antibodies Elevated serum homocysteine Heparin-induced thrombocytopenia Other congenital or acquired thrombophilia Stroke (< 1 month) Elective arthroplasty Hip, pelvis, or leg fracture Acute spinal cord injury (< 1 month) Prophylaxis Regimen Total Risk Factor Score Risk Level Prophylaxis Regimen 0-1 Low Early ambulation 2 Moderate Order ONE of the following: *Sequential Compression Device (SCD) *Heparin 5000 units SQ BID 3-4 Higher Order ONE of the following medications: *Heparin 5000 units SQ TID *Enoxaparin/Lovenox 40 mg SQ daily (WT < 150 kg, CrCl > 30 mL/min) *Enoxaparin/Lovenox 30 mg SQ daily (WT < 150 kg, CrCl > 10-29 mL/min) *Enoxaparin/Lovenox 30 mg SQ BID (WT < 150 kg, CrCl > 30 mL/min) AND/OR *Sequential Compression Device (SCD) 5 or more Highest Order ONE of the following medications: *Heparin 5000 units SQ TID (Preferred with Epidurals) *Enoxaparin/Lovenox 40 mg SQ daily (WT < 150 kg, CrCl > 30 mL/min) *Enoxaparin/Lovenox 30 mg SQ daily (WT < 150 kg, CrCl > 10-29 mL/min) *Enoxaparin/Lovenox 30 mg SQ BID (WT < 150 kg, CrCl > 30 mL/min) AND *Sequential Compression Device (SCD) Assessment and Plan Problem List: (1) Fall ICD Code: W19.XXXA - Unspecified fall, initial encounter Status: Acute (2) Open fracture of right wrist ICD Code: S62.101B - Fracture of unspecified carpal bone, right wrist, initial encounter for open fracture Status: Acute (3) Dehydration ICD Code: E86.0 - Dehydration (4) HTN (hypertension) ICD Code: I10 - Essential (primary) hypertension Assessment and Plan A/P: 1. Fall: s/p mechanical trip and fall, no LOC or head trauma. No other injuries reported. 2. Right Wrist Fx: Open. Wrist X-ray w/ comminuted fracture distal radius, images reviewed by me, s/p reduction/splint in ER. Dr. Lantigua consulted by ER physician, plan is for surgical intervention. NPO, IVF, analgesics/antiemetics as needed. Pre-op labs WNL. CXR w/ no acute findings, images reviewed by me. 3. Dehydration: GFR 67. BUN 21. IVF for hydration, repeat labs in am. 4. HTN: BP 150-170's while in ER, likely compounded by pain complaints, optimize pain control, monitor BP. 5. DVT Prophylaxis: Anticoagulation post op per Ortho 6. Social work for d/c planning as needed. 7. Case discussed w/ ER physician at length. Physician Certification 2 Midnight Certification Type: Admission for Inpatient Services Order for Inpatient Services The services are ordered in accordance with Medicare regulations or non- Medicare payer requirements, as applicable. In the case of services not specified as inpatient-only, they are appropriately provided as inpatient services in accordance with the 2-midnight benchmark. Estimated LOS (days): 2 days is the estimated time the patient will need to remain in the hospital, assuming treatment plan goals are met and no additional complications. Post-Hospital Plan: Not yet determined Problem Qualifiers (1) Fall: Qualified Codes: W19.XXXA - Unspecified fall, initial encounter (2) Open fracture of right wrist: Qualified Codes: S62.101B - Fracture of unspecified carpal bone, right wrist, initial encounter for open fracture Coleen Ferguson MD Sep 20, 2017 21:45
[2017-09-20] MEDS ORDERED: ACETAMINOPHEN 1000 MG/100 ML 100 ML IV ONE (22:27)
[2017-09-20] MEDS ORDERED: ceFAZolin INJ 1,000 MG VIAL IV ONE (22:36)
--- NOTE | 2017-09-20 23:20 | PD.OP ---
cc: Hong Lantigua MD Operative Report Date of Surgery: Sep 20, 2017 Preoperative Diagnosis: (1) Fracture, Colles, right, open Postoperative Diagnosis: (1) Fracture, Colles, right, open Procedure: Irrigation debridement right open Colles' fracture with external fixation Anesthesia: Gen. Surgeon: Hong Lantigua Construction Controller(s): Surekha Peterson PA-C (Ashley) The surgical procedure was assisted by my physician's graphic design assistant. Her presence was necessary throughout the case for manipulation and positioning of the surgical extremity. My PA was assisting me throughout the duration of this procedure. The skill set of the physician graphic design assistant was medically necessary to complete this procedure. During the surgical case the surgical manager was working at the back table and the physician graphic design assistant was directly assisting me. Operation and Findings: Indications: This 87-year-old female fell injuring her right wrist. She had immediate pain and obvious deformity. She presented to [facility]. X-rays revealed a displaced fracture of the distal radius and ulnar styloid within wound over the volar aspect of the distal ulna. It communicated with the fracture site. Recommendations therefore were for operative intervention. Procedure and findings: Patient was taken to the operative suite and after undergoing an adequate level of general anesthesia was kept supine on the operating table. Preoperative antibiotics consisted of Ancef 1 g IV. The right upper extremity was then prepped and draped in usual sterile fashion with alcohol and Hibiclens. Preoperative reduction was checked in both the AP and lateral planes with the C-arm. A percutaneous incision was made at the base of the second metacarpal. Blunt dissection was carried out to the bone. A drill hole was made and a Schanz pin seated. An additional pin was placed in a parallel fashion distal to the first. 2 pins were also placed in a similar fashion proximal to the fracture site in the radius. The position was checked in both the AP and lateral planes with the C-arm. The external fixator was then assembled and applied. The fracture was held reduced and the bolts tightened. Reduction was again checked in both AP and lateral planes with the C -arm. The volar traumatic wound was then thoroughly irrigated with antibiotic irrigant. It was then loosely closed with 4-0 nylon. Sterile dressings were applied, the patient was awakened, transferred to the hospital stretcher and taken to the recovery room in stable condition. Estimate blood loss: Minimal Complications: None Hong Lantigua MD Sep 20, 2017 23:19
[2017-09-20] MEDS ORDERED: MORPHINE SULFATE 8 MG/ML INJ IV PUSH PRN (23:30)
[2017-09-20] MEDS ORDERED: ONDANSETRON HCL 4 MG/2 ML VIAL IV PUSH PRN (23:30)
[2017-09-20] MEDS: DEXT 5%-NACL 0.45% 1000 ML INJ 1,000 ML IV SCH (23:37)
[2017-09-20] MEDS ORDERED: DO NOT ADM ANY ANTICOAGULANT DRUGS PRN (23:45)
--- NOTE | 2017-09-20 23:53 | RADRPT ---
EXAM DATE/TIME: 09/20/2017 23:06 [facility] COMPARISON: WRIST RIGHT COMPLETE ([id number]), September 20, 2017, 21:04. INDICATIONS : External fixation of a right wrist fracture. MEDICAL HISTORY : None. SURGICAL HISTORY : None. ENCOUNTER: Subsequent ACUITY: 1 day PAIN SCORE: Non-responsive. LOCATION: Right wrist FINDINGS: AP and lateral views of the right wrist were obtained and demonstrate interval placement of an manager stylist al fixation device with fixation pins extending through the second metacarpal and radius. The comminu britton fracture of the distal radius is again noted and the main fracture fragments are now in near juan omic alignment. The ulnar styloid fracture is in near-anatomic alignment as well. Previously noted an gulation has been reduced. CONCLUSION: Status post external fixation. Jorge Silva MD on September 20, 2017 at 23:48 Board Certified Radiologist. This report was verified electronically.
[2017-09-21] MEDS: ACETAMINOPHEN/HYDROcodone 325 MG/5 MG TAB PO PRN ×3 (00:49→12:01)
[2017-09-21 00:50] VITALS: BP 145/67; PULSE 88; RESP 17; TEMP 97.7; O2SAT 95
[2017-09-21 04:00] VITALS: BP 113/56; PULSE 89; RESP 16; TEMP 97.6; O2SAT 97
[2017-09-21 06:15] LABS: AUTOMATED NEUTROPHIL # 5.6 TH/MM3 (1.8-7.7); BASOPHIL # 0.1 TH/MM3 (0-0.2); BASOPHIL % 0.7 % (0.0-2.0); EOSINOPHIL # 0.1 TH/MM3 (0-0.4); EOSINOPHIL % 1.1 % (0.0-4.0); HEMATOCRIT 34.6 % (35.0-46.0); HEMO FLAGS DIFF FINAL; LYMPH % 27.1 % (9.0-44.0); LYMPHOCYTE # 2.5 TH/MM3 (1.0-4.8); MEAN CELL VOLUME 94.5 FL (80.0-100.0); MEAN CORPUSCULAR HEMOGLOBIN 32.1 PG (27.0-34.0); MEAN CORPUSCULAR HGB CONC 33.9 % (32.0-36.0); MONO % 10.5 % (0.0-8.0); NEUT % 60.6 % (16.0-70.0); PLATELET COUNT 189 TH/MM3 (150-450); RED BLOOD COUNT 3.67 MIL/MM3 (4.00-5.30); RED CELL DISTRIBUTION WIDTH 13.1 % (11.6-17.2); WHITE BLOOD COUNT 9.2 TH/MM3 (4.0-11.0)
[2017-09-21 07:01] LABS: ALKALINE PHOSPHATASE 55 U/L (45-117); ALT (GPT) 17 U/L (10-53); ANION GAP 9 MEQ/L (5-15); AST (GOT) 17 U/L (15-37); BICARBONATE 24.3 MEQ/L (21.0-32.0); BLOOD UREA NITROGEN 17 MG/DL (7-18); CHLORIDE 106 MEQ/L (98-107); GLOMERULAR FILTRATION RATE 64 ML/MIN (>89); SODIUM (NA) 139 MEQ/L (136-145); TOTAL BILIRUBIN ADULT 0.4 MG/DL (0.2-1.0)
[2017-09-21 08:00] VITALS: BP 132/55; PULSE 82; RESP 16; TEMP 98.3; O2SAT 95
[2017-09-21] MEDS ORDERED: amLODIPine BESYLATE 5 MG TAB PO SCH (09:00)
[2017-09-21] MEDS: DOCUSATE SODIUM 50 MG/SENNA 8.6 MG TAB PO SCH ×2 (09:00→09:02)
[2017-09-21] MEDS ORDERED: SODIUM CHLORIDE 0.9% FLUSH 10 ML FLUSH IV FLUSH SCH (09:00)
--- NOTE | 2017-09-21 11:03 | PD.ORT.PN ---
Subjective Post Op Day #: 1 Pain Scale: 2 Subjective Remarks The patient is awake alert and her family is at the bedside. She is having minimal discomfort. They are requesting discharge. Objective Vitals Vital Signs Date Time Temp Pulse Resp B/P (MAP) Pulse Ox O2 Delivery O2 Flow Rate FiO2 09/21/17 08:00 98.3 82 16 132/55 (80) 95 09/21/17 04:00 97.6 89 16 113/56 (75) 97 09/21/17 00:50 97.7 88 17 145/67 (93) 95 09/21/17 00:15 79 16 145/67 (93) 95 Nasal Cannula 2 09/21/17 00:00 78 16 145/66 (92) 96 Nasal Cannula 2 09/20/17 23:45 81 18 146/66 (92) 99 Nasal Cannula 2 09/20/17 23:35 98.3 83 18 152/65 (94) 99 Nasal Cannula 2 09/20/17 21:54 09/20/17 21:03 83 20 178/84 (115) 94 Nasal Cannula 2.00 09/20/17 20:41 74 16 154/69 (97) 95 Nasal Cannula 2.00 09/20/17 20:38 82 17 154/69 (97) 97 Nasal Cannula 2.00 09/20/17 20:24 77 14 146/63 (90) 92 Nasal Cannula 2.00 09/20/17 20:08 77 16 169/74 (105) 92 Nasal Cannula 09/20/17 20:03 74 16 144/73 (96) 92 Nasal Cannula 2.00 09/20/17 19:58 81 18 157/71 (99) 100 Nasal Cannula 2.00 09/20/17 19:54 80 18 149/72 (97) 99 Nasal Cannula 2.00 09/20/17 19:32 92 Nasal Cannula 2.00 09/20/17 18:56 68 09/20/17 18:56 97.5 65 18 149/79 (102) 96 Room Air 09/20/17 18:45 78 18 149/79 (102) 97 I/O 09/20/17 09/20/17 09/20/17 09/21/17 09/21/17 09/21/17 07:00 15:00 23:00 07:00 15:00 23:00 Intake Total 50 ml 640 ml Output Total 25 ml Balance 50 ml 615 ml Intake Oral 240 ml IV Total 50 ml Other 400 ml Output Estimated Blood Loss 25 ml # Voids 2 Result Diagram: 09/21/17 0557 09/21/17 0557 Other Results Laboratory Tests Test 09/20/17 19:15 Prothromb Time International Ratio 1.0 RATIO Prothrombin Time 11.5 SEC (9.8-11.6) Imaging Last 48 hours Impressions Wrist X-Ray 09/20/17 Signed Impressions: Service Date/Time: Wednesday, September 20, 2017 23:06 - CONCLUSION: Status post external fixation. Jorge Silva MD Wrist X-Ray 09/20/17 Signed Impressions: Service Date/Time: Wednesday, September 20, 2017 21:04 - CONCLUSION: Reduction distal radial fracture into improved alignment and approximation of fragments with diminished overriding and displacement Naresh Mendez MD Wrist X-Ray 09/20/17 Signed Impressions: Service Date/Time: Wednesday, September 20, 2017 19:56 - CONCLUSION: Comminuted fracture distal radius major distal fragments are slowly and medially externally displaced upon the proximal fragment and overriding by probably 2 cm. Fracture is probably open with a small area of bone absent from the ulnar styloid Naresh Mendez MD Chest X-Ray 09/20/17 Signed Impressions: Service Date/Time: Wednesday, September 20, 2017 20:00 - CONCLUSION: No acute disease. Naresh Mendez MD Objective Remarks The dressing is dry and intact. She moves her fingers freely and has good capillary refill and sensation. Assessment & Plan Problem List: (1) Fracture, Colles, right, open ICD Codes: S52.531B - Colles' fracture of right radius, initial encounter for open fracture type I or II Status: Acute Qualifiers: Assessment and Plan The patient's orthopedic status is stable postoperative day #1 for discharge. Follow-up later this week. Family states she has a friend who is an RN who will do pin care. All their questions were answered to their satisfaction. Hong Lantigua MD Sep 21, 2017 11:03
[2017-09-21] MEDS ORDERED: HYDR-3516 PO (11:05)
[2017-09-21] MEDS: DEXT 5%-NACL 0.45% 1000 ML INJ 1,000 ML IV SCH (11:24)
[2017-09-21 12:00] VITALS: BP 126/49; PULSE 90; RESP 16; TEMP 96.8; O2SAT 95
--- NOTE | 2017-09-21 13:31 | HHI.PR ---
Subjective Remarks no complains - pain controlled per patient- slipped Objective Vitals Vital Signs Date Time Temp Pulse Resp B/P (MAP) Pulse Ox O2 Delivery O2 Flow Rate FiO2 09/21/17 08:00 98.3 82 16 132/55 (80) 95 09/21/17 04:00 97.6 89 16 113/56 (75) 97 09/21/17 00:50 97.7 88 17 145/67 (93) 95 09/21/17 00:15 79 16 145/67 (93) 95 Nasal Cannula 2 09/21/17 00:00 78 16 145/66 (92) 96 Nasal Cannula 2 09/20/17 23:45 81 18 146/66 (92) 99 Nasal Cannula 2 09/20/17 23:35 98.3 83 18 152/65 (94) 99 Nasal Cannula 2 09/20/17 21:54 09/20/17 21:03 83 20 178/84 (115) 94 Nasal Cannula 2.00 09/20/17 20:41 74 16 154/69 (97) 95 Nasal Cannula 2.00 09/20/17 20:38 82 17 154/69 (97) 97 Nasal Cannula 2.00 09/20/17 20:24 77 14 146/63 (90) 92 Nasal Cannula 2.00 09/20/17 20:08 77 16 169/74 (105) 92 Nasal Cannula 09/20/17 20:03 74 16 144/73 (96) 92 Nasal Cannula 2.00 09/20/17 19:58 81 18 157/71 (99) 100 Nasal Cannula 2.00 09/20/17 19:54 80 18 149/72 (97) 99 Nasal Cannula 2.00 09/20/17 19:32 92 Nasal Cannula 2.00 09/20/17 18:56 68 09/20/17 18:56 97.5 65 18 149/79 (102) 96 Room Air 09/20/17 18:45 78 18 149/79 (102) 97 I/O 09/20/17 09/20/17 09/20/17 09/21/17 09/21/17 09/21/17 07:00 15:00 23:00 07:00 15:00 23:00 Intake Total 50 ml 640 ml Output Total 25 ml Balance 50 ml 615 ml Intake Oral 240 ml IV Total 50 ml Other 400 ml Output Estimated Blood Loss 25 ml # Voids 2 Result Diagram: 09/21/17 0557 09/21/17 0557 Imaging Last Impressions Wrist X-Ray 09/20/17 0000 Signed Impressions: Service Date/Time: Wednesday, September 20, 2017 23:06 - CONCLUSION: Status post external fixation. Jorge Silva MD Chest X-Ray 09/20/17 0000 Signed Impressions: Service Date/Time: Wednesday, September 20, 2017 20:00 - CONCLUSION: No acute disease. Naresh Mendez MD Objective Remarks awake and alert, oriented x 3 anicteric lungs- no rales or wheezes regular rhythm abdomen soft RUE- post op dressing in place, external fix in place LE- no edema Procedures 09/21- external fixator placement- right Wrist A/P Problem List: (1) Fall ICD Code: W19.XXXA - Unspecified fall, initial encounter Status: Acute (2) Open fracture of right wrist ICD Code: S62.101B - Fracture of unspecified carpal bone, right wrist, initial encounter for open fracture Status: Acute (3) Dehydration ICD Code: E86.0 - Dehydration (4) HTN (hypertension) ICD Code: I10 - Essential (primary) hypertension Assessment and Plan 87 years old female 1. Fall: s/p mechanical trip and fall, no LOC or head trauma. No other injuries reported. 2. Right Wrist Fx: Open. S/P ORIF with external fixator placed- 09/20- cleared by Ortho for DC with OP ff up next weekW 3. Dehydration: GFR 67. BUN 21. - improved. encourage po hydration 4. HTN: - continue home meds Amlodpine. orn pain meds DC home today OP ff up with a PCP- states they will set up with one- jsut recently moved down here OP ff up with Dr. Lantigua diet- heart healthy ACtivity- weight bearing as tolerating. RUE as instructed Meds- prn Lortab- scripts writted by Ortho continue home meds Problem Qualifiers (1) Fall: Qualified Codes: W19.XXXA - Unspecified fall, initial encounter (2) Open fracture of right wrist: Qualified Codes: S62.101B - Fracture of unspecified carpal bone, right wrist, initial encounter for open fracture Emil Martínez MD Sep 21, 2017 13:31
--- NOTE | 2017-10-03 00:22 | PD.OP ---
cc: Hong Lantigua MD Operative Report Date of Surgery: Sep 20, 2017 Preoperative Diagnosis: (1) Fracture, Colles, right, open Postoperative Diagnosis: (1) Fracture, Colles, right, open Procedure: Irrigation and Debridement, External Fixation right open Colles' Fracture Anesthesia: general Surgeon: Hong Lantigua [employer] Teacher(s): Surekha Peterson PA-C ([place]ley) Operation and Findings: This is an addendum to the previous operative note 09/20/17. The patient had an approximate 3cm transverse laceration on the volar/ulnar aspect communicating with the fracture site. In addition to thorough irrigation, skin edges and subcutaneous tissue were debrided sharply with a scalpel for a depth of 2cm. All viable tissue was left intact and no loose fragments of bone were identified. Hong Lantigua MD Oct 03, 2017 00:22
== END 2017-09-21 15:31 | disposition home or self-care (01) | DRG 465 ==
LOC: NEPD 18:37 → NEDA 20:49 → OBSVTOIN 20:56 → N06A 09-21 00:32
PROVIDERS: ADMIT Internal Medicine; ATTEND Internal Medicine
PROC: 0PSK35Z Reposition Right Ulna with External Fixation Device, Percutaneous Approach (ICD-10-PCS; 2017-09-20)
PROC: 0PSHXZZ Reposition Right Radius, External Approach (ICD-10-PCS; 2017-09-20)
PROC: 0JBG0ZZ Excision of Right Lower Arm Subcutaneous Tissue and Fascia, Open Approach (ICD-10-PCS; 2017-09-20)
PROC: 0PSH35Z Reposition Right Radius with External Fixation Device, Percutaneous Approach (ICD-10-PCS; principal; 2017-09-20 22:14)
DX: S52.531B Colles' fracture of right radius, initial encounter for open fracture type I or II (principal); E86.0 Dehydration; W01.0XXA Fall on same level from slipping, tripping and stumbling without subsequent striking against object, initial encounter; I10 Essential (primary) hypertension; E78.5 Hyperlipidemia, unspecified; Z86.73 Personal history of transient ischemic attack (TIA), and cerebral infarction without residual deficits; H91.90 Unspecified hearing loss, unspecified ear
CPT/HCPCS: 71010; 73100; 73110; 76000; 80048; 80053; 85025; 85610; 85730; 86850; 86900; 86901; 90471; 90714; 96365; 96375; J0131; J0690; J1580; J2270; J2405; J7030

== ENCOUNTER 2017-10-06 12:07 | Emergency (ER) | payer MEDICARE, OTHER ==
[~2017-10-06] VITALS: Ht 160 cm; Wt 59.8 kg
[~2017-10-06 12:07] MED LIST changes: +AMLO2.5T PO; +ASPI-516 CHEW; +HYDR-3516 PO; -LORTA5 PO; -[UNRECOGNIZED DRUG - REMARK] PO
[2017-10-06 12:15] VITALS: BP 134/65; PULSE 98; RESP 18; TEMP 97.8; O2SAT 96
[2017-10-06] MEDS ORDERED: HYDR200T3 PO (12:32)
[2017-10-06] MEDS ORDERED: QUIN5TAB6 PO (12:32)
[2017-10-06] MEDS ORDERED: DULO1CAP2 PO (12:32)
--- NOTE | 2017-10-06 12:55 | PD ---
HPI Chief Complaint: Edema Time Seen by Provider: 12:36 Travel History International Travel<30 days: No Contact w/Intl Traveler<30days: No Traveled to known affect area: No History of Present Illness HPI The patient was seen and examined in the presence of the nurse. This patient complains of swelling in the right hand and forearm. She had operative repair of her fracture 2 weeks ago in the right wrist. She has external fixator in place. No injury to it. No fever or drainage or redness or warmth. Duration of swelling is over 2 days. No increased pain. Severity is mild PFSH Past Medical History Hx Anticoagulant Therapy: Yes (ASA) Cardiovascular Problems: Yes (HTN ) Cerebrovascular Accident: Yes Diminished Hearing: Yes ([employer]) Hypertension: Yes Tetanus Vaccination: < 5 Years ?: Not Past Surgical History Gynecologic Surgery: Yes (L LUMPECTOMY, HYSTERECTOMY ) Hysterectomy: Yes Other Surgery: Yes (BIOPSY LEFT BREAST) Social History Alcohol Use: Yes (OCC) Tobacco Use: No Substance Use: No Allergies-Medications (Allergen,Severity, Reaction): Coded Allergies: No Known Allergies (Unverified Adverse Reaction, Unknown, 10/06/17) Reported Meds & Prescriptions Reported Meds & Active Scripts Active Hydrocodone-Acetaminophen 5-325 mg Tab 2 Tab PO Q6H PRN Reported Quinapril (Quinapril HCl) 5 Mg Tab 5 Mg PO DAILY Duloxetine DR (Duloxetine HCl) 30 Mg Capdr 30 Mg PO DAILY Hydroxychloroquine (Hydroxychloroquine Sulfate) 200 Mg Tab 200 Mg PO DAILY Takw with food Review of Systems General / Constitutional: No: Fever HENT: No: Headaches Cardiovascular: No: Chest Pain or Discomfort Respiratory: No: Cough Physical Exam Narrative Psych: Normal mood and affect. Normal insight and judgment. SKIN: Focused skin assessment reveals no rash or ulcers. Skin is warm and dry. Palpation shows no induration or nodules. Right arm: Patient has an external fixator in the right forearm. There is some diffuse swelling of hand and distal arm but there is no tenseness or tightness of compartments. Sensation capillary refill and pulses are all intact. There is no sign of infection. There is no redness or warmth or induration or tenderness or drainage or fluctuance or ascending lymphangitis. Data Data Last Documented VS Vital Signs Date Time Temp Pulse Resp B/P (MAP) Pulse Ox O2 Delivery O2 Flow Rate FiO2 10/06/17 12:15 97.8 98 18 134/65 (88) 96 MDM Medical Decision Making Medical Screen Exam Complete: Yes Emergency Medical Condition: Yes Medical Record Reviewed: Yes Differential Diagnosis Postoperative swelling, infection, injury Narrative Course I have reviewed the patient's electronic medical record. Reviewed his operative note and initial x-ray I don't see a sign of infection here. Patient is minimally symptomatic but noted diffuse swelling. I unwrap the dressing and evaluated. It's been rewrapped and I gave her a sling. She should elevated. She should call Dr. Lantigua in the morning for follow-up I placed a call as a courtesy to discuss his postop patient but he is not on- call or available. I don't think discussion with a covering orthopedist who doesn't know this patient would change management administrator. Diagnosis Primary Impression: Swelling of right upper extremity Additional Instructions: Wear sling, elevate right arm, call Dr. Lantigua in the morning Med/Other Pt SpecificInfo: Other Disposition: 01 DISCHARGE HOME Condition: Stable Dougie Garzon MD Oct 06, 2017 12:55
== END 2017-10-06 13:07 | disposition home or self-care (01) ==
LOC: PHEFT 12:07
DX: R22.31 Localized swelling, mass and lump, right upper limb (principal); I10 Essential (primary) hypertension; H91.90 Unspecified hearing loss, unspecified ear; Z98.890 Other specified postprocedural states; Z79.82 Long term (current) use of aspirin; Z86.79 Personal history of other diseases of the circulatory system
CPT/HCPCS: 99282

== ENCOUNTER 2017-10-10 16:57 | Emergency (ER) | payer MEDICARE, OTHER ==
[~2017-10-10] VITALS: Ht 160 cm; Wt 62.0 kg
[~2017-10-10 16:57] MED LIST changes: -AMLO2.5T PO; -ASPI-516 CHEW; +DULO1CAP2 PO; +HYDR200T3 PO; +QUIN5TAB6 PO
[2017-10-10 17:34] VITALS: BP 145/68; PULSE 97; RESP 20; TEMP 97.9; O2SAT 96
[2017-10-10] MEDS ORDERED: AMLO5TAB2 PO (17:45)
--- NOTE | 2017-10-10 18:00 | PD ---
HPI Chief Complaint: Fall Time Seen by Provider: 17:38 Travel History International Travel<30 days: No Contact w/Intl Traveler<30days: No Traveled to known affect area: No History of Present Illness HPI Patient is an 87 year old female who was brought by [facility] after a fall EP SPECIALIST. Patient had walked up stairs and was walking down the mc on a carpeted surface when she tripped and fell. She fell to her knees and denies falling on her outstretched hands. She denies LOC, dizziness, or shortness of breath prior to her fall. She denies any head or neck trauma. She says she hurt her back during the fall. Pain 03/11. Patient had a recent fall that required external fixation of right wrist. Per [facility] she has had multiple falls lately and on Clindamycin for right wrist infection after previous fall. She was dehydrated with decreased skin turgor and given fluids en route. Denies any fever, dizziness, shortness of breath, headache, pain in abdomen or extremities. Modifying Factors: None Associated Signs & Symptoms: Fall on the stairs, back injury Risk Factors: Elderly, on pain meds, frequent falls PFSH Past Medical History Hx Anticoagulant Therapy: Yes (ASA) Cardiovascular Problems: Yes (HTN ) Cerebrovascular Accident: Yes Diminished Hearing: Yes ([employer]) Hypertension: Yes Tetanus Vaccination: < 5 Years Influenza Vaccination: Yes : 2 Para: 2 Miscarriage: 0 : 0 Past Surgical History Gynecologic Surgery: Yes (L LUMPECTOMY) Hysterectomy: Yes Other Surgery: Yes (BIOPSY LEFT BREAST) Social History Alcohol Use: No Tobacco Use: No Substance Use: No Allergies-Medications (Allergen,Severity, Reaction): Coded Allergies: No Known Allergies (Unverified Adverse Reaction, Unknown, 10/10/17) Reported Meds & Prescriptions Reported Meds & Active Scripts Active Hydrocodone-Acetaminophen 5-325 mg Tab 2 Tab PO Q6H PRN Reported Amlodipine (Amlodipine Besylate) 5 Mg Tab 5 Mg PO DAILY Quinapril (Quinapril HCl) 5 Mg Tab 5 Mg PO DAILY Duloxetine DR (Duloxetine HCl) 30 Mg Capdr 30 Mg PO DAILY Hydroxychloroquine (Hydroxychloroquine Sulfate) 200 Mg Tab 200 Mg PO DAILY Takw with food Review of Systems Except as stated in HPI: all other systems reviewed are Neg Physical Exam Exam Limitations: Poor Historian Narrative GENERAL: Well-developed pleasant elderly white female patient, well-nourished. Awake. Alert. Lying comfortably in bed. In no acute distress SKIN: Warm and dry. Small area of erythema on right knew. No edema or tenderness to palpation. HEAD: Atraumatic. Normocephalic. EYES: Pupils equal and round. No scleral icterus. No injection or drainage. ENT: No nasal bleeding or discharge. Mucous membranes pink and moist. NECK: Trachea midline. No JVD. CARDIOVASCULAR: Regular rate and rhythm. RESPIRATORY: No accessory muscle use. Clear to auscultation. Breath sounds equal bilaterally. GASTROINTESTINAL: Abdomen soft, non-tender, nondistended. Hepatic and splenic margins not palpable. MUSCULOSKELETAL: Right wrist wrapped and externally fixated. Mild tenderness to palpation over thoracic spine and midback. Extremities without clubbing, cyanosis, or edema. No obvious deformities. NEUROLOGICAL: Awake and alert. No obvious cranial nerve deficits. Motor grossly within normal limits. 4 out of 5 muscle strength in the arms and legs. Normal speech. PSYCHIATRIC: Appropriate mood and affect. Data Data Last Documented VS Vital Signs Date Time Temp Pulse Resp B/P (MAP) Pulse Ox O2 Delivery O2 Flow Rate FiO2 10/10/17 17:36 98 Room Air 10/10/17 17:34 97.9 97 20 145/68 (93) Orders Orders Spine, Thoracic-Ap/Lat/Sw(3vw) (10/10/17 17:40) Spine, Lumbar Comp W/Obliq (10/10/17 17:40) Pelvis, Ap Only (Routine) (10/10/17 17:40) Electrocardiogram (10/10/17 17:48) Complete Blood Count With Diff (10/10/17 17:48) Comprehensive Metabolic Panel (10/10/17 17:48) Troponin I (10/10/17 17:48) Urinalysis - C+S If Indicated (10/10/17 17:48) Chest, Single Ap (10/10/17 17:48) Ed Discharge Order (10/10/17 19:05) Labs Laboratory Tests Test 10/10/17 18:00 White Blood Count 10.8 TH/MM3 Red Blood Count 3.73 MIL/MM3 Hemoglobin 12.1 GM/DL Hematocrit 35.9 % Mean Corpuscular Volume 96.3 FL Mean Corpuscular Hemoglobin 32.4 PG Mean Corpuscular Hemoglobin Concent 33.6 % Red Cell Distribution Width 13.0 % Platelet Count 317 TH/MM3 Mean Platelet Volume 8.1 FL Neutrophils (%) (Auto) 72.5 % Lymphocytes (%) (Auto) 14.7 % Monocytes (%) (Auto) 9.7 % Eosinophils (%) (Auto) 2.2 % Basophils (%) (Auto) 0.9 % Neutrophils # (Auto) 7.8 TH/MM3 Lymphocytes # (Auto) 1.6 TH/MM3 Monocytes # (Auto) 1.0 TH/MM3 Eosinophils # (Auto) 0.2 TH/MM3 Basophils # (Auto) 0.1 TH/MM3 CBC Comment DIFF FINAL Differential Comment Blood Urea Nitrogen 18 MG/DL Creatinine 0.67 MG/DL Random Glucose 97 MG/DL Total Protein 6.9 GM/DL Albumin 2.6 GM/DL Calcium Level 8.3 MG/DL Alkaline Phosphatase 94 U/L Aspartate Amino Transf (AST/SGOT) 21 U/L Alanine Aminotransferase (ALT/SGPT) 24 U/L Total Bilirubin 0.2 MG/DL Sodium Level 138 MEQ/L Potassium Level 4.2 MEQ/L Chloride Level 105 MEQ/L Carbon Dioxide Level 25.0 MEQ/L Anion Gap 8 MEQ/L Estimat Glomerular Filtration Rate 83 ML/MIN Troponin I LESS THAN 0.02 NG/ML MDM Medical Decision Making Medical Screen Exam Complete: Yes Emergency Medical Condition: Yes Medical Record Reviewed: Yes Interpretation(s) EKG shows NSR, no ST elevation or depression, and no arrhythmias. No significant T-wave inversions. Laboratory Tests Test 10/10/17 18:00 Red Blood Count 3.73 MIL/MM3 (4.00-5.30) Neutrophils (%) (Auto) 72.5 % (16.0-70.0) Monocytes (%) (Auto) 9.7 % (0.0-8.0) Neutrophils # (Auto) 7.8 TH/MM3 (1.8-7.7) Monocytes # (Auto) 1.0 TH/MM3 (0-0.9) Albumin 2.6 GM/DL (3.4-5.0) Calcium Level 8.3 MG/DL (8.5-10.1) Estimat Glomerular Filtration Rate 83 ML/MIN (>89) Troponin I LESS THAN 0.02 NG/ML Last 24 hours Impressions Chest X-Ray 10/10/[id number] Signed Impressions: Service Date/Time: October 17:59 - CONCLUSION: Chronic interstitial changes. No acute infiltrate. Jose L Moreno Jr., MD Thoracic Spine X-Ray [id number]/10/[id number] Signed Impressions: Service Date/Time: , October 10, 2017 18:04 - CONCLUSION: 1. Age-indeterminate compression fractures involving the approximate T5 and T6 vertebral bodies. Jose L Moreno Jr., MD Pelvis X-Ray [id number]/10/[id number] Signed Impressions: Service Date/Time: , October 10, 2017 18:03 - CONCLUSION: No acute disease. Jose L Moreno Jr., MD Lumbar Spine X-Ray [id number]/10/171739 Signed Impressions: Service Date/Time: October 18:05 - CONCLUSION: 1. No acute abnormality. Jose L Moreno Jr., MD Differential Diagnosis Fall, back injury: Fractures versus contusions versus strain Narrative Course Patient has no head injury or loss consciousness. She had back pain after falling forwards. X-rays showing T5-T6 compression fractures. Lab work did not indicate any significant metabolic issues. Vital signs are stable in the ER. At this point, it appears that this is a loss of balance and fall. Patient is on pain medications for her wrist and I suspect that this could be a contributing factor. My plan would be to release her at this point would follow -up to primary care doctor. She can take ongoing pain medication relief as needed that she already has. Return for any worsening in pain or new symptoms as needed. The plan was discussed with her and family and they state understanding. Diagnosis Primary Impression: Compression fx, thoracic spine Additional Impression: Fall Disposition: 01 DISCHARGE HOME Condition: Stable Julissa Barros MD Oct 10, 2017 18:00
[2017-10-10 18:25] LABS: AUTOMATED NEUTROPHIL # 7.8 TH/MM3 (1.8-7.7); BASOPHIL # 0.1 TH/MM3 (0-0.2); BASOPHIL % 0.9 % (0.0-2.0); EOSINOPHIL # 0.2 TH/MM3 (0-0.4); EOSINOPHIL % 2.2 % (0.0-4.0); HEMATOCRIT 35.9 % (35.0-46.0); HEMO FLAGS DIFF FINAL; LYMPH % 14.7 % (9.0-44.0); LYMPHOCYTE # 1.6 TH/MM3 (1.0-4.8); MEAN CELL VOLUME 96.3 FL (80.0-100.0); MEAN CORPUSCULAR HEMOGLOBIN 32.4 PG (27.0-34.0); MEAN CORPUSCULAR HGB CONC 33.6 % (32.0-36.0); MONO % 9.7 % (0.0-8.0); NEUT % 72.5 % (16.0-70.0); PLATELET COUNT 317 TH/MM3 (150-450); RED BLOOD COUNT 3.73 MIL/MM3 (4.00-5.30); WHITE BLOOD COUNT 10.8 TH/MM3 (4.0-11.0)
--- NOTE | 2017-10-10 18:42 | RADRPT ---
EXAM DATE/TIME: 10/10/2017 18:03 [facility] COMPARISON: No previous studies available for comparison. INDICATIONS : Pain due to fall. MEDICAL HISTORY : Hypertension. SURGICAL HISTORY : Right wrist. ENCOUNTER: Initial ACUITY: 1 day PAIN SCORE: 3/10 LOCATION: pelvis FINDINGS: A single frontal view of the pelvis demonstrates no evidence of fracture. The bony pelvic ring is in tact. Bony mineralization is normal. The soft tissues are intact. CONCLUSION: No acute disease. Jose L Moreno Jr., MD on October 10, 2017 at 18:40 Board Certified Radiologist. This report was verified electronically.
--- NOTE | 2017-10-10 18:45 | RADRPT ---
EXAM DATE/TIME: 10/10/2017 17:59 [facility] COMPARISON: CHEST SINGLE AP, September 20, 2017, 20:00. INDICATIONS : Pain due to fall. MEDICAL HISTORY : Hypertension. SURGICAL HISTORY : Right wrist. ENCOUNTER: Initial ACUITY: 1 day PAIN SCORE: 3/10 LOCATION: Bilateral chest FINDINGS: A single portable frontal view the chest shows chronic interstitial changes. No infiltrate or effusio n. Heart is normal in size. Aorta is calcified. Bony structures are unremarkable. Old right-sided rib fractures. CONCLUSION: Chronic interstitial changes. No acute infiltrate. Jose L Moreno Jr., MD on October 10, 2017 at 18:43 Board Certified Radiologist. This report was verified electronically.
[2017-10-10 18:47] LABS: ANION GAP 8 MEQ/L (5-15); AST (GOT) 21 U/L (15-37); BLOOD UREA NITROGEN 18 MG/DL (7-18); CHLORIDE 105 MEQ/L (98-107); GLOMERULAR FILTRATION RATE 83 ML/MIN (>89); POTASSIUM 4.2 MEQ/L (3.5-5.1); SODIUM (NA) 138 MEQ/L (136-145)
[2017-10-10 18:48] LABS: ALT (GPT) 24 U/L (10-53)
--- NOTE | 2017-10-10 18:49 | RADRPT ---
EXAM DATE/TIME: 10/10/2017 18:04 [facility] COMPARISON: No previous studies available for comparison. INDICATIONS : Pain due to fall. MEDICAL HISTORY : Hypertension. SURGICAL HISTORY : Right wrist. ENCOUNTER: Initial ACUITY: 1 day PAIN SCORE: 3/10 LOCATION: Thoracic spine. FINDINGS: Frontal and lateral views of the thoracic spine reveal diffuse osteopenia. Mild scoliotic curvature w ith concavity towards the patient's left centered at the upper thoracic levels. A wedge-shaped compre ssion deformity is seen involving 2 adjacent thoracic vertebra. These are felt to be T5 and T6. The r emaining vertebral bodies show normal height. The paraspinal soft tissues are unremarkable. CONCLUSION: 1. Age-indeterminate compression fractures involving the approximate T5 and T6 vertebral bodies. Jose L Moreno Jr., MD on October 10, 2017 at 18:46 Board Certified Radiologist. This report was verified electronically.
--- NOTE | 2017-10-10 18:51 | RADRPT ---
EXAM DATE/TIME: 10/10/2017 18:05 [facility] COMPARISON: No previous studies available for comparison. INDICATIONS : Pain due to fall. MEDICAL HISTORY : Hypertension. SURGICAL HISTORY : Right wrist. ENCOUNTER: Initial ACUITY: 1 day PAIN SCORE: 3/10 LOCATION: lumbar. FINDINGS: There are five non-rib bearing vertebral bodies. There is a mild scoliotic curvature with concavity t owards the patient's right centered at the upper lumbar levels. Vertebral body heights are maintained . The disc spaces are maintained. The posterior elements are intact without evidence of spondylolysi s. Bony facet arthropathy changes at multiple lower lumbar levels. The pedicles are intact. Bony mi neralization is reduced. No fracture is identified. Calcified plaque involving the abdominal aorta. Calcified gallstones. CONCLUSION: 1. No acute abnormality. Jose L Moreno Jr., MD on October 10, 2017 at 18:48 Board Certified Radiologist. This report was verified electronically.
[2017-10-10 18:52] LABS: ALKALINE PHOSPHATASE 94 U/L (45-117); TOTAL BILIRUBIN ADULT 0.2 MG/DL (0.2-1.0)
--- NOTE | 2017-10-11 18:15 | EKG ---
Date Performed: 10/10/2017 Time Performed: 18:27:42 PTAGE: 87 years EKG: Sinus rhythm MODERATE VOLTAGE CRITERIA FOR LVH, CONSIDER NORMAL VARIANT POSSIBLE SEPTAL MYOCARDIAL INFARCTION BOR DERLINE ECG PREVIOUS TRACING : 05/06/2016 09.05 DOCTOR: Bakari Pierce Interpretating Date/Time 10/11/2017 18:11:22
== END 2017-10-10 19:41 | disposition home or self-care (01) ==
LOC: NEPE 16:57
DX: S22.050A Wedge compression fracture of T5-T6 vertebra, initial encounter for closed fracture (principal); E86.0 Dehydration; I10 Essential (primary) hypertension; I25.2 Old myocardial infarction; W01.0XXA Fall on same level from slipping, tripping and stumbling without subsequent striking against object, initial encounter; Z91.81 History of falling; Z86.73 Personal history of transient ischemic attack (TIA), and cerebral infarction without residual deficits; Z79.899 Other long term (current) drug therapy
CPT/HCPCS: 71010; 72072; 72110; 72170; 80053; 84484; 85025; 93005; 99285